=== PATIENT | female | born 1960 | race Caucasian/White ===

== ENCOUNTER 2020-05-13 11:08 | Emergency (ER) | payer OTHER ==
--- NOTE | 2020-05-13 12:22 | ED Physician Documentation ---
History of Present Illness - Stated complaint Stated Complaint: EYE IRRITATION - Chief complaint Chief Complaint: Heent - History obtained from History obtained from: Patient - History of Present Illness Timing: Prior to arrival, How many days ago (2) - Additonal information Additional information: 60-year-old female presents to the emergency department for evaluation of what was initially right I drainage but now includes the left eye. She reports that 2 days ago she began to have some right eye irritation and mild swelling. She wakes up in the morning and often has crusting matting her lashes. This morning both of her eyes were matted shut. She denies eye pain or vision changes. She has had no cough cold congestion or fevers. She reports that recently she has developed a few styes in both of her eyes that she has been able to get to go away after applying warm compress. She does not wear contact lenses. Review of Systems Constitutional: reports: Reviewed and negative Eyes: reports: Discharge, Irritation. 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 HEENT: Tonsil/Adenoidectomy - Present Medications Home Medications: Ambulatory Orders Medication Instructions Recorded Confirmed Polymyxin B Sulf/Trimethoprim 10 ml OP TID #1 bottle 05/13/20 [Polymyxin B-Tmp Eye Drops] - Allergies Allergies/Adverse Reactions: Allergies Allergy/AdvReac Type Severity Reaction Status Date / Time No Known Drug Allergies Allergy Verified 05/13/20 11:10 - Social History Does the pt smoke?: No Smoking Status: Never smoker Does the pt drink ETOH?: Yes ETOH Use: Wine Does the pt have substance abuse?: No - Immunizations Immunizations are current?: Yes PD ED PE NORMAL - General General: Alert and oriented X 3, No acute distress, Well developed/nourished - HEENT HEENT: Atraumatic, PERRL, Ears normal, Moist mucous membranes, Pharynx benign, Other (Mild right conjunctival injection. Negative fluorescein stain. No stye, hordeolum or blepharitis noted.Eye with mild upper and lower lid erythema but no induration. left eye exam unremarkable.) - Cardiac Cardiac: RRR, No murmur - Respiratory Respiratory: Clear bilaterally - Abdomen Abdomen: Normal bowel sounds, Soft, Non tender, Non distended Results - Vitals Vitals: Vital Signs - 24 hr 05/13/20 11:10 Temperature 36.9 C Heart Rate 63 Respiratory 16 Rate Blood Pressure 139/81 H O2 Saturation 99 Oxygen O2 Source Room air PD MEDICAL DECISION MAKING - ED course Complexity details: considered differential, d/w patient ED course: 60 year old female presents to the emergency department with progressive eye drainage that was initially just in the right eye but now the left for 2 days. Her exam is most consistent with a conjunctivitis. She does note that recently she has developed styes that she has been able to alleviate using warm compress. No stye present at the time of exam. My suspicion for a keratitis or iritis is very low. 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 Please fill the prescription for the antibiotic drops. Place 1 drop in both eyes 3 times a day for 5 days. I do recommend that you follow-up closely with your earth auger operator in the near future. If you develop eye pain, have loss of vision, or feel that your symptoms are not improving please return for a second look
[2020-05-13 12:35] VITALS: BP 142/91
== END 2020-05-13 12:34 | disposition home or self-care (01) ==
LOC: ED 11:08
DX: H10.33 Unspecified acute conjunctivitis, bilateral (principal)
CPT/HCPCS: 99282; 99284